=== PATIENT | male | born 2000 | race Caucasian/White ===

== ENCOUNTER → 2020-12-13 | Outpatient (CLI) | payer OTHER ==
--- NOTE | 2020-12-14 05:35 | MR ---
EXAMINATION TYPE: MR wrist RT wo con DATE OF EXAM: 12/13/2020 COMPARISON: None HISTORY: Pain, redness, and clicking in right wrist. Multiplanar multiecho imaging of the right wrist without contrast. The carpal bones are intact. Intercarpal joint spaces are fairly normal. There is no bone edema. Ther e is fracture of the ulnar styloid process with separation 2 mm. The T2 images show increased signal in the distal ulna extending into the ulnar styloid process and consistent with bone bruising and marilin ma. There is some edema also in the soft tissues around the ulnar styloid process. The flexor tendons of the wrist appear intact. Extensor tendons appear intact. Triangular cartilage a ppears intact. There is no evidence of a soft tissue mass. Collateral ligaments appear intact. IMPRESSION: Ulnar styloid process deformity with bone edema in the distal ulna and consistent with acute fracture . Carpal bones appear normal.
== END | disposition home or self-care (01) ==
LOC: RADMRIMAIN 08:17
DX: R60.0 Localized edema (principal)

== ENCOUNTER 2021-08-11 21:20 | Emergency (ER) | payer OTHER ==
[2021-08-11 21:50] VITALS: BP 140/91; PULSE 85; RESP 18; TEMP 98.5
--- NOTE | 2021-08-12 | ED ---
Psych HPI - General Chief Complaint: Psychiatric Symptoms Stated Complaint: Mental Health Time Seen by Provider: 08/11/21 23:51 Source: patient, RN notes reviewed, old records reviewed Mode of arrival: ambulatory Limitations: no limitations - History of Present Illness MD Complaint: feels depressed -: days(s) Associated Psychiatric Symptoms: depression History of same: Yes Quality: getting worse Improves With: none Worsens With: none Context: significant life stressor Associated Symptoms: denies other symptoms Treatments Prior to Arrival: placed on mental health hold If Self Harm: admits thoughts of self harm, has plan, has acted on plan - Related Data Allergies Allergy/AdvReac Type Severity Reaction Status Date / Time No Known Allergies Allergy Verified 08/11/21 21:47 Review of Systems ROS Statement: Those systems with pertinent positive or pertinent negative responses have been documented in the HPI. ROS Other: All systems not noted in ROS Statement are negative. Past Medical History Past Medical History: No Reported History History of Any Multi-Drug Resistant Organisms: None Reported Past Surgical History: Orthopedic Surgery Past Psychological History: No Psychological Hx Reported Smoking Status: Never smoker Past Alcohol Use History: None Reported Past Drug Use History: None Reported General Exam Limitations: no limitations General appearance: alert, in no apparent distress Head exam: Present: atraumatic, normocephalic, normal inspection Eye exam: Present: normal appearance, PERRL, EOMI. Absent: scleral icterus, conjunctival injection, periorbital swelling ENT exam: Present: normal exam, mucous membranes moist Neck exam: Present: normal inspection. Absent: tenderness, meningismus, lymphadenopathy Respiratory exam: Present: normal lung sounds bilaterally. Absent: respiratory distress, wheezes, rales, rhonchi, stridor Cardiovascular Exam: Present: regular rate, normal rhythm, normal heart sounds. Absent: systolic murmur, diastolic murmur, rubs, gallop, clicks GI/Abdominal exam: Present: soft, normal bowel sounds. Absent: distended, tenderness, guarding, rebound, rigid Extremities exam: Present: normal inspection, full ROM, normal capillary refill. Absent: tenderness, pedal edema, joint swelling, calf tenderness Back exam: Present: normal inspection Neurological exam: Present: alert, oriented X3, CN II-XII intact Psychiatric exam: Present: normal affect, normal mood Skin exam: Present: warm, dry, intact, normal color. Absent: rash Course Vital Signs 08/11/21 21:47 Temperature 98.5 F Pulse Rate 85 Respiratory 18 Rate Blood Pressure 140/91 O2 Sat by Pulse 98 Oximetry Medical Decision Making - Lab Data Lab Results 08/12/21 Range/Units 00:35 Urine Opiates Screen Not Detected (NotDetected) Ur Oxycodone Screen Not Detected (NotDetected) Urine Methadone Screen Not Detected (NotDetected) Ur Propoxyphene Screen Not Detected (NotDetected) Ur Barbiturates Screen Not Detected (NotDetected) U Tricyclic Antidepress Detected H (NotDetected) Ur Phencyclidine Scrn Not Detected (NotDetected) Ur Amphetamines Screen Not Detected (NotDetected) U Methamphetamines Scrn Not Detected (NotDetected) U Benzodiazepines Scrn Not Detected (NotDetected) Urine Cocaine Screen Not Detected (NotDetected) U Marijuana (THC) Screen Not Detected (NotDetected) Disposition Clinical Impression: Depression Disposition: HOME SELF-CARE Condition: Fair Instructions (If sedation given, give patient instructions): Depression (ED), Mood Disorders (ED) Is patient prescribed a controlled substance at d/c from ED?: No Referrals: [facility],Clinic [Primary Care Provider] - 1-2 days
[2021-08-12] MEDS ORDERED: TOPICAL SKIN ADHESIVE 1 EACH AMP TOPICAL ONE (01:34)
[2021-08-12 01:42] LABS: Amphetamine Screen,Urine Not Detected (NotDetected); Barbiturate Screen,Urine Not Detected (NotDetected); Benzodiazepines Screen,Urine Not Detected (NotDetected); Cocaine Screen,Urine Not Detected (NotDetected); Methadone Screen, Urine Not Detected (NotDetected); Opiate Screen,Urine Not Detected (NotDetected); Oxycodone Screen, Urine Not Detected (NotDetected); Phencyclidine Screen,Urine Not Detected (NotDetected); Tricyclic Antidepressant,Urine Detected (NotDetected); Urn Cannabinoid Scrn Not Detected (NotDetected)
== END 2021-08-12 03:20 | disposition home or self-care (01) ==
LOC: EC 21:20
DX: F32.A Depression, unspecified (principal)
CPT/HCPCS: 80306; 82075; 99284

== ENCOUNTER 2023-07-26 21:56 | Emergency (ER) | payer OTHER ==
[2023-07-26 22:04] VITALS: TEMP 98.4
--- NOTE | 2023-07-26 22:26 | ED ---
General Adult HPI - General Chief complaint: Extremity Injury, Lower Stated complaint: ingrown toenails bilateral Time Seen by Provider: 07/26/23 22:11 Source: patient, RN notes reviewed, old records reviewed Mode of arrival: ambulatory Limitations: no limitations - History of Present Illness Initial comments: 32-year-old male with great toe pain and swelling on both feet. History of ingrown toenail. Patient reports erythema and warmth to the lateral aspect of both of his great toes. Patient has an appointment with podiatry in 1 week. - Related Data Previous Rx's Medication Instructions Recorded Sulfamethox-Tmp 800-160Mg [Bactrim 1 tab PO Q12HR #20 tab 07/26/23 DS 800-160 mg] Allergies Allergy/AdvReac Type Severity Reaction Status Date / Time No Known Allergies Allergy Verified 08/11/21 21:47 Review of Systems ROS Statement: Those systems with pertinent positive or pertinent negative responses have been documented in the HPI. ROS Other: All systems not noted in ROS Statement are negative. Past Medical History Past Medical History: No Reported History History of Any Multi-Drug Resistant Organisms: None Reported Past Surgical History: Orthopedic Surgery Past Psychological History: No Psychological Hx Reported Smoking Status: Never smoker Past Alcohol Use History: None Reported Past Drug Use History: None Reported General Exam Limitations: no limitations General appearance: alert, in no apparent distress Head exam: Present: atraumatic, normocephalic Eye exam: Present: normal appearance, PERRL ENT exam: Present: normal exam Respiratory exam: Present: normal lung sounds bilaterally. Absent: respiratory distress, wheezes Cardiovascular Exam: Present: regular rate, normal rhythm GI/Abdominal exam: Present: soft. Absent: distended, tenderness Extremities exam: Present: other (Bilateral ingrown toenails and bilateral paronychia of the great toe) Course Vital Signs 07/26/23 22:02 Temperature 98.4 F Pulse Rate 93 Respiratory 16 Rate Blood Pressure 132/88 O2 Sat by Pulse 98 Oximetry Procedures - Incision & Drainage Consent Obtained: verbal consent Indication: Great toe paronychia Site: foot Anesthetic Used: lidocaine 1% Amount (mLs): 3 I&D Cleaning Method: Betadine Sterile Field Used?: Yes Scalpel Used: #11 Ultrasound used: No Needle Aspiration Performed?: No Irrigation Performed?: No I&D Drainage Obtained: Pus, Blood Culture Obtained?: No Patient Tolerated Procedure: well - Nerve Block Consent Obtained: verbal consent Local Anesthetic Used: Lidocaine 1% Amount of anesthesia used: 3 Side: left, right Nerve Blocks: digital Procedure Successful: No Complications: none Patient Tolerated Procedure: well Medical Decision Making - Medical Decision Making Was pt. sent in by a medical professional or institution (KATHY Dolan, [employer], urgent care, hospital, or skilled nursing...) When possible be specific @ -No Did you speak to anyone other than the patient for history (EMS, parent, family, police, friend...)? What history was obtained from this source @ -No Did you review nursing and triage notes (agree or disagree)? Why? @ -I reviewed and agree with nursing and triage notes Were old charts reviewed (outside hosp., previous admission, EMS record, old EKG, old radiological studies, urgent care reports/EKG's, skilled nursing records)? Report findings @ -No old charts were reviewed Differential Diagnosis ingrown toenail, paronychia, cellulitis EKG interpreted by me (3pts min.). @ -As above X-rays interpreted by me (1pt min.). @ -None done CT interpreted by me (1pt min.). @ -None done U/S interpreted by me (1pt. min.). @ -None done What testing was considered but not performed or refused? (CT, X-rays, U/S, labs)? Why? @ -None What meds were considered but not given or refused? Why? @ -None Did you discuss the management of the patient with other professionals (professionals i.e. KATHY Dolan, [employer], lab, RT, psych nurse, social work msw, core blower, teacher, ordnance corps officer, case loader operator)? Give summary @ -No Was smoking cessation discussed for >3mins.? @ -No Was critical care preformed (if so, how long)? @ -No Were there social determinants of health that impacted care today? How? (Homelessness, low income, unemployed, alcoholism, drug addiction, transportation, low edu. Level, literacy, decrease access to med. care, long term, rehab)? @ -No Was there de-escalation of care discussed even if they declined (Discuss DNR or withdrawal of care, Hospice)? DNR status @ -No What co-morbidities impacted this encounter? (DM, HTN, Smoking, COPD, CAD, Cancer, CVA, ARF, Chemo, Hep., AIDS, mental health diagnosis, sleep apnea, morbid obesity)? @ -None Was patient admitted / discharged? Hospital course, mention meds given and route, prescriptions, significant lab abnormalities, going to OR and other pertinent info. @ -22-year-old male with ingrown toenails and associated paronychia. Requiring digital block and incision and drainage. Patient placed on antibiotics and directed to maintain his appointment with podiatry in 1 week Undiagnosed new problem with uncertain prognosis? @ -No Drug Therapy requiring intensive monitoring for toxicity (Heparin, Nitro, Insulin, Cardizem)? @ -No Were any procedures done? @ -Yes, bilateral digital block, bilateral incision and drainage of paronychia of the great toes Diagnosis/symptom? @ -[Ingrown toenails, paronychia Acute, or Chronic, or Acute on Chronic? @ -Acute Uncomplicated (without systemic symptoms) or Complicated (systemic symptoms)? @ -Default Side effects of treatment? @ -No Exacerbation, Progression, or Severe Exacerbation? @ -No Poses a threat to life or bodily function? How? (Chest pain, [place], [place], pneumonia, PE, COPD, DKA, ARF, appy, cholecystitis, CVA, Diverticulitis, Homicidal, Suicidal, threat to staff... and all critical care pts) @ -No Disposition Clinical Impression: Paronychia due to ingrown nail Disposition: HOME SELF-CARE Condition: Good Instructions (If sedation given, give patient instructions): Paronychia (ED), Ingrown Nail (ED) Prescriptions: Sulfamethox-Tmp 800-160Mg [Bactrim DS 800-160 mg] 1 tab PO Q12HR #20 tab Is patient prescribed a controlled substance at d/c from ED?: No Referrals: [facility],Clinic [Primary Care Provider] - 1-2 days Time of Disposition: 22:45
[2023-07-26] MEDS: LIDOCAINE 1% INJ 10MG/ML (20 ML MDV) SQ ONE (22:34)
[2023-07-26 23:01] VITALS: BP 118/81; PULSE 87; RESP 17
== END 2023-07-26 23:02 | disposition home or self-care (01) ==
LOC: EC 21:56
DX: L03.032 Cellulitis of left toe (principal); L03.031 Cellulitis of right toe; L60.0 Ingrowing nail
CPT/HCPCS: 99283; 10060; J2001